=== PATIENT | female | born 1995 | race American Indian/Alaskan Native ===

== ENCOUNTER 2017-11-28 01:14 | Emergency (ER) | payer MEDICAID | END 2017-11-28 03:03 | disposition left against medical advice (07) | LOC: ED 01:14 | DX: R10.9 Unspecified abdominal pain (principal); Z53.21 Procedure and treatment not carried out due to patient leaving prior to being seen by health care provider ==

== ENCOUNTER 2018-02-22 02:30 | Outpatient (CLI) | payer MEDICAID ==
[2018-02-22 03:38] VITALS: BP 97/53
[2018-02-22] MEDS ORDERED: LACTATED RINGERS 500 ML IV ONE (04:09)
[2018-02-22] MEDS ORDERED: LACTATED RINGERS 1,000 ML IV ONE (04:10)
[2018-02-22 04:38] LABS: Bilirubin,Urine NEG (Negative); Blood,Urine SM (Negative); Color,Urine Yellow (Yellow); Mucus,Urine FEW /HPF; Protein,Urine <15 mg/dL mg/dL (Negative); Urobilinogen,Urine < 2.0 mg/dL (<2.0)
== END 2018-02-22 05:42 | disposition home or self-care (01) ==
LOC: TRG 02:30
PROVIDERS: ATTEND Obstetrics & Gynecology
DX: O47.03 False labor before 37 completed weeks of gestation, third trimester (principal); Z3A.28 28 weeks gestation of pregnancy
CPT/HCPCS: 81001; 96360; J7120